=== PATIENT | female | born 1985 | race Native Hawaiian/Other Pacific Islander ===

== ENCOUNTER 2018-04-22 16:19 | Emergency (ER) | payer OTHER ==
[~2018-04-22] VITALS: Ht 160 cm; Wt 81.6 kg
[2018-04-22 17:11] LABS: PLATELET COUNT 284 K/uL (152-353)
[2018-04-22 17:18] LABS: POTASSIUM 3.6 mmol/L (3.6-5.2)
[2018-04-22 20:42] VITALS: BP 128/72; TEMP 98.1
== END 2018-04-22 20:44 | disposition home or self-care (01) ==
LOC: ED 16:19
PROVIDERS: Family Medicine
DX: R10.11 Right upper quadrant pain (principal)
CPT/HCPCS: 36415; 80053; 81000; 82150; 83690; 85027; 99283; Q9963